=== PATIENT | male | born 1980 | race Caucasian/White ===

== ENCOUNTER → 2017-12-22 | Outpatient (CLI) | payer BC ==
[~2017-12-22] MED LIST: DULO60CA6; OMEP20CA6; SULF1TAB38 PO
--- NOTE | 2017-12-22 16:01 | Diagnostic Imaging Report ---
PROCEDURE: MRI lumbar spine. TECHNIQUE: Multiplanar, multisequence MRI of the lumbar spine was performed without contrast. INDICATION: Back pain. Comparison made with prior examination from 05/09/2014. FINDINGS: Alignment of the lumbar spine is normal. The vertebral body heights are well maintained. There is no spondylolysis or spondylolisthesis. No fractures are identified. There are no marrow signal intensity abnormalities. Conus medullaris is seen at L1 and is normal in appearance. The T12-L1 disc is unremarkable. The L1-L2 disc is unremarkable. The L2-L3 disc is unremarkable. The L3-L4 disc is unremarkable. At L4-L5, there is slight loss of disc height and signal intensity and some minimal annular bulging. There is very slight effacement of the ventral thecal sac and mild bilateral neuroforaminal encroachment. There is also some hypertrophic degenerative facet disease. At L5-S1, there is broad-based annular bulging with some encroachment upon the lateral recess bilaterally. There is moderate bilateral neuroforaminal encroachment. The abdominal aorta is nonaneurysmal. Kidneys are unremarkable. IMPRESSION: Mild lower lumbar spondylosis and degenerative disc disease as described. Dictated by: Dictated on workstation # [id number]
== END ==
LOC: RAD 13:48
PROVIDERS: ATTEND Internal Medicine
DX: M47.816 Spondylosis without myelopathy or radiculopathy, lumbar region (principal); M51.36 Other intervertebral disc degeneration, lumbar region
CPT/HCPCS: 72148